=== PATIENT | male | born 1930 | race Caucasian/White ===

== ENCOUNTER 2016-09-04 17:47 | Inpatient (IN) | payer OTHER, MEDICARE ==
[~2016-09-04] VITALS: Ht 175.3 cm; Wt 58.6 kg
--- NOTE | ~2016-09-04 | HC ---
[facility] [place] [address] CONSULTATION Name: KOURTNEY FAIRBANKS Room #: 403-P [facility] IN M.R.#: [id number] Admission: 09/04/16 Attend Phys: Yodit Clayton Discharge: 09/08/16 Date of : 30 Report #: [id number] THIS REPORT FOR: //name// CC: Agusto Moreno DATE OF SERVICE: 09/07/2016 HISTORY OF PRESENT ILLNESS: The patient is an 86-year-old white male who has had problems with increasing falls at home. The notes that he has had 3 falls over the last couple of weeks where he falls backwards. He is unable to get up once he has fallen. There was one time he was bumped and fell back. He is not able to catch himself once he starts to fall. The family was concerned regarding the potential cause of this. He does have a comorbid prior history of chronic lung changes and has been followed by Dr. Ching. No other neuro contributing findings per discussion with the patient's and daughter. PAST MEDICAL HISTORY: Includes interstitial lung disease, bronchiectasis, hypertension, hypothyroidism and melanoma. PAST SURGICAL HISTORY: Noncontributory. FAMILY HISTORY: Noncontributory. HABITS: Former 61-zvxu-jrck history, none recently. No history of chronic alcohol use. MEDICATIONS: Please see the full medication listing. SOCIAL HISTORY: Lives with his , house 1 floor, stairs to the basement. He did use a standard cane on occasion, has a walker. is retired and can assist. Concern regarding him as once he falls, he is unable to get up. ALLERGIES: No known drug allergies. REVIEW OF SYSTEMS: No current complaints of chest pain, shortness of breath or abdominal discomfort. PHYSICAL EXAMINATION: An 86-year-old white male in no obvious distress. Last recorded temperature is 97.7, pulse 99, respirations 18, blood pressure 124/84. The patient is alert. He is pleasant. He tends to speak very little and defers most of it to his . EOMs appeared to be full. Facies are symmetric. He has functional range of motion of both upper extremities. Strength appears to be a grade 4+/5. DTRs are 1. He did reasonably well [id number]. Lower extremities, no focal calf swelling. Functional range of motion, strength is grade 4+ to 4/5. DTRs are trace to 1. He was able to ambulate 25 feet x 2 contact guard with a front-wheeled walker and [place] [address] CONSULTATION Name: KOURTNEY FAIRBANKS Room #: 403-P [facility] IN ..#: [id number] Admission: 09/04/16 Attend Phys: Yodit Clayton Discharge: 09/08/16 Date of : 30 Report #: [id number] ASSESSMENT: An 86-year-old white male with the following problem list: 1. History of recurrent falls with retropulsive history. and daughter quite concerned regarding potential causation. We will go ahead and order an MRI of the brain and Neurology consult with Dr. Scout Moreno. 2. History of interstitial lung disease, which is premorbid. 3. Bronchiectasis, premorbid 4. History of hypertension. 5. Hypothyroidism. PLAN: Occupational therapy orders are added as well. Physical therapy is already ordered. We will see what the workup reveals and we will be glad to follow along with you regarding his rehab therapy needs. 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 <ELECTRONICALLY SIGNED> By: Gerardo Larios MD 09/11/16 1539 1045 1244 Gerardo Lariso MD /nt
--- NOTE | ~2016-09-04 | H ---
[facility] [place] [address] HISTORY AND PHYSICAL Name: KOURTNEY FAIRBANKS Room #: 403-P [facility] IN M.R.#: [id number] Admission: 09/04/16 Attend Phys: Yodit Clayton Discharge: 09/08/16 Date of : 30 Report #: [id number] THIS REPORT FOR: //name// CC: Agusto Moreno DATE OF SERVICE: 09/04/2016 CHIEF COMPLAINT: This is an 86-year-old male with dementia and safety issues. HISTORY OF PRESENT ILLNESS: This is a patient who is well known to our service, who has progressive dementia of the probable Alzheimer's type that is now translating into safety issues at home and there is evidence of caregiver breakdown and safety issues and so we are admitting him for further evaluation and safety purposes. PAST MEDICAL HISTORY: Noteworthy for his interstitial lung disease, hypothyroidism, degenerative arthritis, bronchiectasis and hypertension. His past medical history is otherwise negative from a surgical perspective. MEDICATION: Medication list includes albuterol, levothyroxine, atenolol 50 mg a day and levofloxacin. FAMILY HISTORY: Negative. SOCIAL HISTORY: He smoked many years ago. He currently lives independently with his without evidence of alcohol use. He has no known allergies, but at home, he is falling a lot. We have tried outpatient therapy. He has tried to manage as best he can, but his dementia gets in the way. REVIEW OF SYSTEMS: Really is not reliable. PHYSICAL EXAMINATION: GENERAL: Shows him to be in no distress. He is up eating breakfast with oxygen in place. HEENT: Otherwise, negative. NECK: Supple, without thyromegaly or adenopathy. CHEST: Coarse. CARDIOVASCULAR: Shows a regular rhythm without murmur. ABDOMEN: Soft and nontender. EXTREMITIES: Negative. NEUROLOGIC: Shows forgetfulness. LABORATORY DATA: He has had a recent data to include negative CT of the head. He had a recent urinary tract infection. ASSESSMENT: This is a patient with progressive dementia [place] [address] HISTORY AND PHYSICAL Name: KOURTNEY FAIRBANKS Room #: [address] [place] [address] [place] [facility].#: [id number] Admission: 09/04/16 Attend Phys: Yodit Clayton Discharge: 09/08/16 Date of : 30 Report #: [id number] breakdown. We will involve the rehab team along with case management. It may be that it is time for assisted living. <ELECTRONICALLY SIGNED> By: Agusto Moreno MD 09/16/16 1734 0849 0944 Agusto Moreno MD /nt
--- NOTE | ~2016-09-04 | EKG ---
[address] [address] ELECTROCARDIOGRAM REPORT Name: KOURTNEY FAIRBANKS Room #: 538-P ADM IN M.R.#: [id number] Admission: 09/04/16 Attend Phys: Yodit Clayton Discharge: Date of : 30 Report #: [id number] THIS REPORT FOR: //name// [facility] Test Date: 2016-09-04 Test Time: 21:32:35 Pat Name: KOURTNEY FAIRBANKS Department: Room: 538 P Gender: M Manager Transfusion: Yodit REZA : 1930 Requested By: Agusto Moreno Order Number: [id number] MD: Marcos Gilbert Measurements Intervals Mutual Rate: 82 P: 39 TX: 143 QRS: -48 QRSD: 103 T: 11 QT: 366 QTc: 428 Interpretive Statements Sinus rhythm Atrial premature complexes Left anterior fascicular block Compared to ECG 07/16/2016 20:33:10 Atrial premature complex(es) now present Sinus tachycardia no longer present Electronically Signed On 09-06-2016 15:13:15 CDT by Marcos Gilbert [email or web address] <ELECTRONICALLY SIGNED> By: Marcos Gilbert MD, MERGED WITH [facility] 09/06/16 1513 31 31 Marcos Gilbert MD, MERGED WITH [facility] /EPI
--- NOTE | ~2016-09-04 | HC ---
[facility] [place] [address] CONSULTATION Name: JONATHANFABRIZIOKOURTNEY FORTE Room #: 403-P [facility] IN M.R.#: [id number] Admission: 09/04/16 Attend Phys: Yodit Clayton Discharge: 09/08/16 Date of : 30 Report #: [id number] THIS REPORT FOR: //name// CC: Agusto Moreno DATE OF SERVICE: 09/08/2016 HISTORY OF PRESENT ILLNESS: This is an 86-year-old male patient who was evaluated by me for ambulation difficulty. This patient provides some history, but most of the history is provided by the patient's family. He apparently is having some ambulation difficulty for more than 1 year. It is at least moderate severity, but is becoming worse. This has led to falls. He shuffled. He has done it for long time. Sometime he is better and sometime he is worse. He does not know anything which makes it better or worse. He does not have much of rigidity or hypokinesia. REVIEW OF SYSTEMS: Indicate that he was diagnosed with dementia at one time. He was started on multiple medications including Exelon patch and Namenda. At one time they discontinued, but the says "I did not want to give up" and do nothing and so Namenda was restarted. thought it was making some difference, but on the other hand she also mentioned that she was also hoping that it will slow down the progression. This patient did have multiple falls recently. A 14-point review of system was carried out and there is some problem with hypothyroidism, degenerative arthritis, hypertension. PAST MEDICAL HISTORY: Negative for any major stroke. FAMILY HISTORY: Negative for congenital dementia. SOCIAL HISTORY: He has smoked, but does not drink alcohol. PHYSICAL EXAMINATION: Indicate he is alert. When I asked what month it is, he indicated it is December. He did not know the date. He knew what hospital he was in. He was able to name the president, but not the one before. So his memory is significantly impaired. Cranial nerve examination 2-12 was carried out and looks unremarkable. His strength looks symmetrical. He did not do very well with the position sense, but I do not know whether he understand the instructions. He does not have much tremor or rigidity. I did make him walk and he does have shuffling. He is well developed thin individual, who does not have any dysmorphic features of eyes, ears and face. His hearing and vision looks adequate. His pulses are somewhat difficult to feel. He has no edema, cyanosis or jaundice. He does not have any respiratory difficulty. There are no rhonchi. I reviewed his MRI. His MRI is pretty markedly abnormal. 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 His management is not going to be easy. He can have more side effect from the [facility] [address] [place] [address] CONSULTATION Name: KOURTNEY FAIRBANKS Room #: 403-P [facility] IN ..#: [id number] Admission: 09/04/16 Attend Phys: Yodit Clayton Discharge: 09/08/16 Date of : 30 Report #: [id number] medication and Parkinson medications usually are not very effective for correcting the gait disturbance even if it is present. RECOMMENDATIONS: 1. I will let him stabilize. 2. I will suggest doing some more blood workup on him, which I ordered. 3. Once he is stabilized, trial with a small dose of Sinemet can be done. I discussed all of it with the family in detail and they want to follow this plan. Thank you very much for this referral. <ELECTRONICALLY SIGNED> By: Joselito Stearns MD 09/11/16 1926 1758 39 Joselito Stearns MD /nt
[~2016-09-04 17:47] MED LIST: ATENOLOL 50MG T50 M1 PO; CENTRUM SILVER1 EAC4 PO; DUONEB 2.5-0.5 M3 ML INH; FISH OIL 1,001000 M2 PO; LEVAQUIN 250 M250 MG PO; LEVOXYL25 MCG PO; LIPITOR10 MG PO; LORATIDINE 10 M10 M1 PO; MUCINEX TA600 MG/TA2 PO; VITAMIN D1000 UNI1 PO; VITAMIN E400 UNI2 PO
[2016-09-04 20:15] VITALS: BP 129/75
[2016-09-04 23:25] LABS: ABSOLUTE NEUTROPHILS 10.9 thou/uL (1.4-8.2); BASOPHILS 0.4 % (0.0-2.0); EOSINOPHILS 0.5 % (0.0-3.0); HEMATOCRIT 35.4 % (42.0-52.0); HEMOGLOBIN 11.8 gm/dL (14.0-18.0); LYMPHOCYTES 10.4 % (24.0-44.0); MCH 29.7 pg (26.0-34.0); MCHC 33.5 g/dL (28.0-37.0); MCV 88.9 fL (80.0-100.0); MONOCYTES 11.7 % (1.0-8.0); PLATELET COUNT 309 thou/uL (150-400); RBC 3.98 mil/uL (4.50-6.00); RDW 13.4 % (10.5-14.5); WBC 14.1 thou/uL (4.0-11.0)
[2016-09-04 23:26] LABS: MANUAL DIFF NO
[2016-09-05 05:45] VITALS: BP 123/62
[2016-09-05 07:47] VITALS: BP 127/72
[2016-09-05 16:02] VITALS: BP 98/59
[2016-09-05 20:55] VITALS: BP 98/62
[2016-09-06 06:01] VITALS: BP 141/86
[2016-09-06 08:00] VITALS: BP 145/87
[2016-09-06 16:00] VITALS: BP 128/79
[2016-09-06 19:42] VITALS: BP 107/61
[2016-09-07 04:13] VITALS: BP 141/85
[2016-09-07 07:31] VITALS: BP 124/84
[2016-09-07 16:04] VITALS: BP 113/69
[2016-09-07 19:02] VITALS: BP 121/78
[2016-09-08 03:17] VITALS: BP 150/98
[2016-09-08] MEDS ORDERED: LEVAQUIN 250 M250 MG PO (10:11)
[2016-09-08] MEDS ORDERED: NAMENDA 5 MG TAB5 M1 PO (10:12)
== END 2016-09-08 19:00 | DRG 57 ==
LOC: 5S 17:47 → 4N 09-08 07:16
PROVIDERS: Internal Medicine
DX: G20 Parkinson's disease (principal); I10 Essential (primary) hypertension; E03.9 Hypothyroidism, unspecified; M19.90 Unspecified osteoarthritis, unspecified site; J44.9 Chronic obstructive pulmonary disease, unspecified; R26.9 Unspecified abnormalities of gait and mobility; Z91.81 History of falling; Z85.820 Personal history of malignant melanoma of skin; Z87.891 Personal history of nicotine dependence; F02.80 Dementia in other diseases classified elsewhere, unspecified severity, without behavioral disturbance, psychotic disturbance, mood disturbance, and anxiety
CPT/HCPCS: 10785

== ENCOUNTER 2016-09-08 12:01 | Inpatient (IN) | payer OTHER, MEDICARE ==
[~2016-09-08] VITALS: Ht 175.3 cm; Wt 58.7 kg
--- NOTE | ~2016-09-08 | PLAN ---
[facility] [place] [address] REHAB UNIT PLAN OF CARE Name: KOURTNEY FAIRBANKS Room #: 514-P ADM IN M.R.#: [id number] Admission: 09/08/16 Attend Phys: Gerardo Larios MD Discharge: Date of : 30 Report #: [id number] THIS REPORT FOR: //name// CC: Agusto Larios DATE OF SERVICE: 09/11/2016 SUBJECTIVE: The patient is seen back today in followup. He is in no distress. His daughter is here and indicates that the family would like for him to start the Sinemet trial with the diagnosis of probable Parkinson's/dementia complex. His temperature is 98.2, pulse 78, respirations 16, blood pressure 108/84. He is working in therapies with transfers, contact guard, gait 75-200 feet, front-wheeled walker, contact guard. Lower extremity dressing is max assist. Mild to moderate comprehensive deficits. ASSESSMENT: 1. Parkinson's/dementia complex. 2. Recurrent falls with retropulsion by history. 3. History of interstitial lung disease noted to be premorbid. 4. Bronchiectasis, which has improved. 5. History of hypertension. 6. Hypothyroidism. PLAN: The overall plan of care is based on the preadmission screen, post-admission physician evaluation and information garnered from therapy assessments. 1. Estimated length of stay is probably at least 10 days to 2 weeks pending progress. 2. Medical prognosis is reasonably good. 3. Anticipated interventions include the interdisciplinary acute inpatient rehabilitation program with PT, OT and speech, rehabilitation nursing assisting regarding medication management, skin care prophylaxis, bowel and bladder issues and nursing education. We will have the corporate health consultant physicians continue to follow. 4. Anticipated functional outcomes would be for the patient to improve as far as the retropulsive tendency, decreased incident of falls and achieve a functional level where he can return back home with family. 5. Discharge destination again would be back home with family. 6. Expected therapy by discipline includes PT, OT and speech 1 hour per day each 5 days a week throughout the duration of the acute inpatient rehabilitation stay. ADDENDUM: I have asked Neurology to check back regarding the [facility] [address] [place] [address] REHAB UNIT PLAN OF CARE Name: KOURTNEY FAIRBANKS Nicole Room #: 514-P ADM IN [facility].#: [id number] Admission: 09/08/16 Attend Phys: Gerardo Larios MD Discharge: Date of : 30 Report #: [id number] Parkinson's/dementia complex and consideration for the Sinemet trial, which the family is desiring. <ELECTRONICALLY SIGNED> By: Gerardo Larios MD 09/11/16 1539 1039 1304 Gerardo Larios MD /nt
--- NOTE | ~2016-09-08 | D ---
[facility] [place] [address] DISCHARGE SUMMARY Name: KOURTNEY FAIRBANKS Room #: 514-P ADM IN M.R.#: [id number] Admission: 09/08/16 Attend Phys: Gerardo Larios MD Discharge: Date of : 30 Report #: [id number] THIS REPORT FOR: //name// CC: Agusto Larios FINAL DIAGNOSES: 1. Neurodegenerative gait dysfunction. 2. Senile dementia. 3. Bronchiectasis. HOSPITAL COURSE: The patient was admitted for frequent falls. Lab and x-ray workup were unremarkable. His chest x-ray is noted really to have chronic basilar scarring due to his bronchiectasis. He was given empiric antibiotics, but no clinical overt signs of pneumonia. He is noted to have memory loss and diagnosis of senile dementia had previously been made. MRI of the brain was unremarkable. DISPOSITION: Now transfer to [address] [place] [address]. I will follow his stay there. Transfer orders have been written. <ELECTRONICALLY SIGNED> By: Gerardo Palafox MD 09/09/16 1434 1301 1312 Gerardo Palafox MD /nt
--- NOTE | ~2016-09-08 | HC ---
[facility] [place] [address] CONSULTATION Name: KOURTNEY FAIRBANKS Room #: 514-P [facility] IN M.R.#: [id number] Admission: 09/08/16 Attend Phys: Gerardo Larios MD Discharge: Date of : 30 Report #: [id number] THIS REPORT FOR: //name// CC: Agusto Larios DATE OF SERVICE: 09/12/2016 TYPE OF REPORT: Neuro behavioral status exam. AGE: 86. ATTENDING PHYSICIAN: Gerardo Larios M.D. LINER MACHINE OPERATOR: Atul Agarwal, PhD. CLINICAL PRESENTATION: The patient is an 86-year-old male admitted to the rehabilitation unit at [facility] for comprehensive inpatient rehabilitation program to improve functional mobility and activities of daily living and self-care secondary to deficits from a Parkinson's dementia complex with recurrent falls, history of interstitial lung disease, recurrent falls with retropulsion by history, bronchiectasis, history of hypertension and hypothyroidism. Prior to this hospitalization, the patient was living at home with his . He experienced several falls and was subsequently brought to the hospital for evaluation and treatment. His MRI is reported to have revealed moderate to severe generalized parenchymal volume loss and jjxggutr-vw-crkymf chronic small vessel ischemic changes. A complete description of his medical condition and history can be found in his medical record. Neuropsychological consultation was requested to provide assistance in the assessment of cognitive and emotional status and to provide recommendations and services. The patient has three children. He is a college graduate and was employed as an senior corporate accountant. His son is reported to be an emergency room physician at [facility]. He had one sister that is . His family is very supportive. TECHNIQUES UTILIZED: Clinical interview, review of medical records, staff consultation and behavioral observation, mini mental status exam 2 standard version, clock drawing and verbal fluency assessment (letter and category). EXAMINATION FINDINGS: The patient was alert and cooperative with the assessment. He was unable to describe the reason for his hospitalization or current symptoms and problems that he is having which require treatment. During the evaluation he looked frequently to his for help with answering [facility] [address] [place] [address] CONSULTATION Name: KOURTNEY FAIRBANKS Nicole Room #: 514-P [facility] IN M.R.#: [id number] Admission: 09/08/16 Attend Phys: Gerardo Larios MD Discharge: Date of : 30 Report #: [id number] questions. He is lacking insight into his deficits and very dependent on his for assistance. His describes him as having a shuffling gait, retropulsion and freezing when approaching thresholds. She does not report auditory or visual hallucinations. The patient also denies hallucinations. There is a severe poverty of content in verbal expression. He is not reported to show symptoms of depression or anxiety. Symptoms include sleep disturbance, tiredness and fatigue during the day, variable appetite and decreasing cognition primarily memory, word finding and naming. As indicated, his provides much help with the identification of problems and symptoms for which he requires treatment and for general adjustment. His performance on the MMSE 2 brief version is extremely low with a raw score of 5 of 16. He was 3 of 3 for initial registration, 1 of 5 for orientation to time, 0 of [address] and 1 of 3 for immediate recall of 3 items after a brief time delay and distraction. His performance on the MMSE 2 standard version was somewhat improved but still extremely low with a raw score of 14 of 30. He was 1 of 5 for serial sevens, 2 of 2 for naming, 1 of 1 for repetition, 3 of 3 for auditory comprehension. He could read and follow single command. He also generates a sentence. Drawing suggests a visual spatial disorganization. The patient was unable to set the hands of a clock at a designated time. He was noted to be stimulus bound in his response to setting the hands. Verbal fluency was extremely low. Letter fluency was a raw score of 3. Category fluency was a raw score of 7. However, performance is extremely low for letter and category fluency. Deficits are suggested in executive functioning. 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 RECOMMENDATIONS: Continued treatment for neurocognitive deficits with medication to support memory. He will require 24-hour supervision for management of his medication, nutrition and finances. Safety issues will be of primary concern upon his discharge home. Educational information was provided to his during the assessment. A followup neuropsych assessment may be of benefit following his discharge home to clarify the severity of cognitive deficits. [address] [address] CONSULTATION Name: KOURTNEY FAIRBANKS Room #: 514-P [facility] IN M.R.#: [id number] Admission: 09/08/16 Attend Phys: Gerardo Larios MD Discharge: Date of : 30 Report #: [id number] Thank you very much for allowing me to provide the consultation on this patient. <ELECTRONICALLY SIGNED> By: Atul Agarwal, PhD 09/13/16 1415 1546 14 Atul Agarwal, PhD /nt
--- NOTE | ~2016-09-08 | HC ---
[facility] [place] [address] CONSULTATION Name: KOURTNEY FAIRBANKS Room #: 514-P [facility] IN M.R.#: [id number] Admission: 09/08/16 Attend Phys: Gerardo Larios MD Discharge: 09/22/16 Date of : 30 Report #: [id number] THIS REPORT FOR: //name// CC: Agusto Larios PRIMARY CARE PHYSICIAN: Scout Moreno M.D. REFERRAL PHYSICIAN: Gerardo Palafox M.D. REASON FOR REFERRAL: Cough and bronchospasm. HISTORY OF PRESENT ILLNESS: The patient is an 86-year-old white male well known to this physician with bronchiectasis and interstitial lung disease. He has been admitted to the rehab unit for weakness and falls. A pulmonary consultation was requested due to persistent cough and bronchospasm. The patient has been followed longitudinally in your office for a number of years for COPD, bronchiectasis along with interstitial lung disease. The patient has been doing fairly well. He takes occasional antitussives for his chronic cough. He has a mild productive cough of light yellowish sputum. To my recollection, he has never been diagnosed with Pseudomonas aeruginosa infections. Over the years, the patient has been getting weaker and frail. He has lost some weight. There are some concerns for senile dementia. Because of frequent falls and safety concerns, he was admitted to the rehab. Currently, he states the cough is about the same though he has occasional dyspnea and bronchospasm at nights. Otherwise denies any chest pain or hemoptysis. PAST MEDICAL HISTORY: Remarkable for COPD/bronchiectasis, moderately severe, baseline FEV1 of 1.4 liters of 58% predicted, interstitial lung disease, melanoma, hypertension, past history of pneumonia, past history of bronchitis, history of falls with progressive weakness, hypocholesterolemia, mild cardiomyopathy with an ejection fraction of 47%, is felt to be nonischemic. PAST SURGICAL HISTORY: Includes lung biopsy in 2008 regarding his interstitial lung disease without obvious specific diagnosis, melanoma resection in 2011, abdominal surgery, bronchoscopy in 2015. ALLERGIES: None to medications. CURRENT MEDICATIONS: List reviewed. These have included DuoNebs, nebulized budesonide, zolpidem p.r.n., atenolol, tamsulosin, levothyroxine, memantine, guaifenesin, prednisone 40 mg once a day, and Augmentin 875 mg [address]. b.i.d. [address] [address] CONSULTATION Name: KOURTNEY FAIRBANKS Nicole Room #: 514-P DIS IN ..#: [id number] Admission: 09/08/16 Attend Phys: Gerardo Larios MD Discharge: 09/22/16 Date of : 30 Report #: [id number] FAMILY HISTORY: Is notable for mother, who at the age of 41 due to cancer of unknown type, father at the age of 75, cause unknown. He has several children, one son is an ER physician. SOCIAL HISTORY: The patient is , lives independently with his . He has smoked, but quit in 1959 after having smoked one to two packs a day for many years. He used to drink, but has quit. He is a retired repairer recreational vehicle. There are in the process of contemplating moving to a smaller place and selling their home. REVIEW OF SYSTEMS: As mentioned, it is notable for progressive weakness and debility, weight loss. Otherwise, 10-point system review negative. PHYSICAL EXAMINATION: GENERAL: He is awake, alert at times, but confused at other times. VITAL SIGNS: Temperature is 98.5 degrees Fahrenheit, pulse is 91, respiratory rate 16, blood pressure is 112/68 mmHg, and saturation 97%. HEENT: Normocephalic, atraumatic. NECK: Supple without any lymphadenopathy or thyromegaly. CHEST: Breath sounds are fair due to poor effort. Few scattered crackles. No wheezes. CARDIOVASCULAR: Normal S1, S2. No murmurs or gallop. Pulses are 2+/4 positive bilaterally. ABDOMEN: Soft, nontender, no organomegaly or masses felt. GENITOURINARY: Deferred. RECTAL: Deferred. EXTREMITIES: There is no edema, cyanosis, or clubbing. LABORATORY DATA: Chest x-ray shows chronic bilateral patchy interstitial infiltrates. No consolidation, air bronchogram is noted. No effusion seen. Electrolytes are normal. Creatinine is normal. WBC 4500, hemoglobin is 12.7. IMPRESSION: 1. Persistent dyspnea, bronchospasm in this 86-year-old white male with a history of bronchiectasis, chronic obstructive pulmonary disease along with interstitial lung disease. Suspect the patient has mild exacerbation of chronic obstructive pulmonary disease. 2. Chronic obstructive pulmonary disease, mildly severe impairment, baseline FEV1 of 1.4 liters or 58% predicted. 3. Pulmonary fibrosis related to above. 4. Progressive weakness and debility along with weight loss. 5. Dementia. RECOMMENDATION: Agree with Augmentin. We will add prednisone 40 mg once a day for 5 days. Continue bronchodilator therapy. [address] [address] CONSULTATION Name: KOURTNEY FAIRBANKS Room #: 514-P DIS IN ..#: [id number] Admission: 09/08/16 Attend Phys: Gerardo Larios MD Discharge: 09/22/16 Date of : 30 Report #: [id number] The patient can use antitussive if cough is severe. Thank you for the consultation. <ELECTRONICALLY SIGNED> By: Colt Ching MD 09/23/16 1351 [id number] Colt Ching MD /nt
--- NOTE | ~2016-09-08 | H ---
[facility] [place] [address] HISTORY AND PHYSICAL Name: KOURTNEY FAIRBANKS Room #: 514-P ADM IN M.R.#: [id number] Admission: 09/08/16 Attend Phys: Gerardo Larios MD Discharge: Date of : 30 Report #: [id number] THIS REPORT FOR: //name// CC: Agusto Larios DATE OF SERVICE: 09/08/2016 HISTORY OF PRESENT ILLNESS: The patient is an 86-year-old white male who was having problems with increasing falls at home. He had 3 falls over the last couple of weeks where he falls backwards. He was unable to get up once he had fallen. He was admitted on 09/04/2016. MRI of the brain did not show any acute abnormalities. Neurology saw him and noted that he does have some shuffling, memory is significantly impaired. had tried him on could try him on Exelon patch and Namenda and the Namenda was restarted. 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 They ordered more blood work and are considering starting a small dose of Sinemet at a later date. The patient was noted to have significant functional mobility and ADL deficits and has been admitted now for acute in-hospital inpatient rehabilitation. He also was noted to have bronchiectasis. PAST MEDICAL HISTORY: Includes interstitial lung disease, bronchiectasis, hypertension, hypothyroidism and melanoma. MEDICATIONS: Please see the full medication listing. Each of these was individually reconciled upon admission to the rehab chilel. PAST SURGICAL HISTORY: Noncontributory. FAMILY HISTORY: Noncontributory. HABITS: Former pack year history, none recently. No history of chronic alcohol abuse. SOCIAL HISTORY: Lives with his , house one floor stairs to the basement. He did use a standard cane on occasion, also has a walker. is retired and can assist. Concern regarding him once he falls. He is noted to be unable to get up. ALLERGIES: No known drug allergies. REVIEW OF SYSTEMS: Did not offer any current complaints of chest pain, shortness of breath, abdominal discomfort. No focal extremity pain complaints. PHYSICAL EXAMINATION: GENERAL: An 86-year-old white male in no obvious distress. [address] [address] HISTORY AND PHYSICAL Name: KOURTNEY FAIRBANKS Room #: 514-P [facility] IN .R.#: [id number] Admission: 09/08/16 Attend Phys: Gerardo Larios MD Discharge: Date of : 30 Report #: [id number] VITAL SIGNS: Last recorded temperature 97.8, pulse 96, respirations 16, blood pressure 160/92. NEUROLOGIC: The patient is alert, pleasant. He may have some evidence of a masked facies. Limited speech. EOMs appeared to be full. CHEST: Sounded clear to auscultation. CARDIAC: Regular rate and rhythm. ABDOMEN: Bowel sounds positive, nontender. GENITOURINARY AND RECTAL: Deferred. EXTREMITIES: He has functional range of motion of both upper extremities with strength grade 4+ -4/5. DTRs are 1. Lower extremities, no focal calf swelling. Functional range of motion with strength a grade 4+ -4/5. DTRs are trace to 1. He does have some cogwheeling of both elbows with range of motion of his upper extremities and may have some mild rigidity of his lower extremities. Lower extremities reveal DTRs trace to 1. Transfers are min assist and he has ambulated a short distance min assist with the front wheeled walker. ASSESSMENT: 1. Parkinsons/dementia complex. Neurology is following. Further lab evaluation underway with consideration for a low dose Sinemet trial at a later dose. 2. Recurrent falls with retropulsion by history. 3. History of interstitial lung disease noted to be premorbid. 4. Bronchiectasis, which is premorbid. 5. History of hypertension. 6. Hypothyroidism. PLAN: The patient has been admitted for an acute in-hospital inpatient rehabilitation stay. From a postadmission physician evaluation perspective, there are no relevant changes since the preadmission screening. Please see the above review of prior and current medical and functional conditions and comorbidities. The patient meets diagnostic criteria for an acute in-hospital inpatient rehabilitation stay. He meets medical necessity criteria and we will have neurology and internal medicine continue to follow while he is on the rehab chilel. He has appropriate tolerance for therapies and appropriate discharge goals back to the home setting. <ELECTRONICALLY SIGNED> By: Gerardo Larios MD 09/11/16 [id number] Gerardo Larios MD /nt
[~2016-09-08 12:01] MED LIST changes: +NAMENDA 5 MG TAB5 M1 PO
[2016-09-08 19:31] VITALS: BP 101/68
[2016-09-09 03:52] VITALS: BP 160/92
[2016-09-09 05:35] LABS: HEMATOCRIT 38.3 % (42.0-52.0); HEMOGLOBIN 12.7 gm/dL (14.0-18.0); MCH 29.3 pg (26.0-34.0); MCHC 33.1 g/dL (28.0-37.0); MCV 88.7 fL (80.0-100.0); RBC 4.32 mil/uL (4.50-6.00); RDW 13.3 % (10.5-14.5); WBC 9.1 thou/uL (4.0-11.0)
[2016-09-09 05:43] LABS: CALCIUM 9.1 mg/dL (8.5-10.1); CREATININE 0.9 mg/dL (0.6-1.3); POTASSIUM 4.1 mmol/L (3.5-5.1)
[2016-09-09 15:30] VITALS: BP 111/72
[2016-09-09 20:36] VITALS: BP 118/69
[2016-09-10 03:09] VITALS: BP 146/84
[2016-09-10 07:45] VITALS: BP 122/80
[2016-09-10 16:00] VITALS: BP 102/67
[2016-09-10 20:00] VITALS: BP 109/70
[2016-09-11 03:47] VITALS: BP 108/84
[2016-09-11 15:52] VITALS: BP 96/57
[2016-09-12 08:22] VITALS: BP 128/76
[2016-09-12 15:30] LABS: HEMATOCRIT 37.5 % (42.0-52.0); HEMOGLOBIN 12.4 gm/dL (14.0-18.0); MCH 29.5 pg (26.0-34.0); MCHC 33.2 g/dL (28.0-37.0); MCV 88.9 fL (80.0-100.0); RBC 4.22 mil/uL (4.50-6.00); RDW 13.4 % (10.5-14.5); WBC 7.2 thou/uL (4.0-11.0)
[2016-09-13 05:18] VITALS: BP 136/84
[2016-09-13 16:00] VITALS: BP 110/66
[2016-09-14 04:00] VITALS: BP 131/76
[2016-09-14 14:55] VITALS: BP 93/47
[2016-09-14 16:10] VITALS: BP 93/57
[2016-09-15 03:51] VITALS: BP 148/82
[2016-09-15 11:20] VITALS: BP 92/57
[2016-09-15 14:40] VITALS: BP 85/56
[2016-09-15 15:00] VITALS: BP 96/52
[2016-09-15 20:00] VITALS: BP 98/58
[2016-09-16 04:16] VITALS: BP 123/82
[2016-09-16 08:30] VITALS: BP 95/58
[2016-09-16 16:00] VITALS: BP 122/55
[2016-09-16 19:35] VITALS: BP 131/73
[2016-09-17 03:28] VITALS: BP 128/82
[2016-09-17 16:30] VITALS: BP 106/68
[2016-09-17 16:33] VITALS: BP 106/68
[2016-09-18 04:01] VITALS: BP 128/62
[2016-09-18 16:00] VITALS: BP 124/78
[2016-09-19 04:30] VITALS: BP 150/79
[2016-09-19 08:07] VITALS: BP 112/72
[2016-09-19 23:12] VITALS: BP 152/80
[2016-09-20 03:18] VITALS: BP 157/91
[2016-09-20 12:40] LABS: HEMATOCRIT 38.6 % (42.0-52.0); HEMOGLOBIN 12.7 gm/dL (14.0-18.0); MCH 29.3 pg (26.0-34.0); MCHC 32.8 g/dL (28.0-37.0); MCV 89.3 fL (80.0-100.0); RBC 4.33 mil/uL (4.50-6.00); RDW 14.1 % (10.5-14.5); WBC 4.5 thou/uL (4.0-11.0)
[2016-09-20 12:43] LABS: CALCIUM 9.1 mg/dL (8.5-10.1); CREATININE 0.9 mg/dL (0.6-1.3); POTASSIUM 4.5 mmol/L (3.5-5.1)
[2016-09-20 16:00] VITALS: BP 112/68
[2016-09-21 04:00] VITALS: BP 117/68
[2016-09-21 08:10] VITALS: BP 109/69
[2016-09-21 16:00] VITALS: BP 116/68
[2016-09-22] VITALS (7 sets, daily range): BP systolic 106–141; BP diastolic 68–78
[2016-09-22] MEDS ORDERED: FLOMAX0.4 MG PO (08:52)
[2016-09-22] MEDS ORDERED: AUGMENTIN 875-1 EACH PO (08:52)
[2016-09-22] MEDS ORDERED: NAMENDA 5 MG TAB5 M1 PO (08:53)
[2016-09-22] MEDS ORDERED: ATENOLOL 25 MG25 M1 PO (08:53)
[2016-09-22] MEDS ORDERED: PREDNISONE 20 M20 M1 PO (08:54)
== END 2016-09-22 16:01 | disposition home or self-care (01) | DRG 91 ==
PROVIDERS: Internal Medicine Geriatric Medicine; Physical Medicine & Rehabilitation; Psychiatry & Neurology Neuromuscular Medicine
DX: R26.89 Other abnormalities of gait and mobility (principal); G93.40 Encephalopathy, unspecified; I42.9 Cardiomyopathy, unspecified; J84.9 Interstitial pulmonary disease, unspecified; E46 Unspecified protein-calorie malnutrition; Z68.1 Body mass index [BMI] 19.9 or less, adult; I10 Essential (primary) hypertension; G20 Parkinson's disease; F02.80 Dementia in other diseases classified elsewhere, unspecified severity, without behavioral disturbance, psychotic disturbance, mood disturbance, and anxiety; E03.9 Hypothyroidism, unspecified; J44.9 Chronic obstructive pulmonary disease, unspecified; J84.10 Pulmonary fibrosis, unspecified; G47.00 Insomnia, unspecified; Z87.891 Personal history of nicotine dependence; Z79.899 Other long term (current) drug therapy
CPT/HCPCS: 10112

== ENCOUNTER → 2016-12-03 | Outpatient (CLI) | payer OTHER, MEDICARE ==
[~2016-12-03] MED LIST changes: +ATENOLOL 25 MG25 M1 PO; +AUGMENTIN 875-1 EACH PO; +FLOMAX0.4 MG PO; +PREDNISONE 20 M20 M1 PO
== END ==
LOC: RAD 10:08
DX: J44.9 Chronic obstructive pulmonary disease, unspecified (principal); R91.8 Other nonspecific abnormal finding of lung field

== ENCOUNTER → 2016-12-23 | Outpatient (CLI) | payer OTHER, MEDICARE ==
--- NOTE | ~2016-12-23 | 2DMMODE ---
[facility] [address] [place] [address] 2 D/M-MODE ECHOCARDIOGRAM Name: KOURTNEY FAIRBANKS Room #: REG [facility]#: [id number] Admission: 12/23/16 Attend Phys: George Aguilera Discharge: Date of : 30 Date of Service: 12/23/16 1328 Report #: [id number] THIS REPORT FOR: //name// APPROVED REPORT Study performed: 12/23/2016 10:39:51 EXAM: Comprehensive 2D, Doppler, and color-flow Echocardiogram Patient Location: Out-Patient Status: routine Other Information Study Quality: Adequate Technically limited study due to thin body habitus, constant coughing. Indications SVT. Hx: NISCM, HTN, HLP, COPD 2D Dimensions RVDd: 40.35 mm LVEF(%): 50.89 (>50%) IVSd: 10.34 (7-11mm) LVOT Diam: 22.52 (18-24mm) LVDd: 46.15 mm PWd: 10.34 (7-11mm) Ascending Ao: 37.11 (22-36mm) LVDs: 34.22 (25-40mm) Aortic Root: 40.86 mm Gamble's LVEF: 50.89 % Volumes Left Atrial Volume (Systole) Single Plane 4CH: 44.99 mL Single Plane 2CH: 55.29 mL LA ESV Index: 34.00 mL/m2 Aortic Valve AoV Peak Mak.: 1.50 m/s AO Peak Gr.: 8.94 mmHg LVOT Max P.74 mmHg LVOT Max V: 1.09 m/s SHI Vmax: 2.90 cm2 Mitral Valve E/A Ratio: 0.9 MV Decel. Time: 217.68 ms MV E Max Mak.: 0.90 m/s MV A Mak.: 0.97 m/s [facility] [place] [address] 2 D/M-MODE ECHOCARDIOGRAM Name: MAGDIKOURTNEY TAMMIE Room #: REG [facility]#: [id number] Admission: 12/23/16 Attend Phys: George Aguilera Discharge: Date of : 30 Date of Service: 12/23/16 1328 Report #: [id number] MV PHT: 63.13 ms IVRT: 101.50 ms Pulmonary Valve PV Peak Mak.: 0.99 m/s PV Peak Gr.: 3.90 mmHg Pulmonary Vein P Vein S: 0.94 m/s P Vein A: 0.33 m/s P Vein D: 0.52 m/s P Vein A Dur.: 120.0 msec P Vein S/D Ratio: 1.81 Tricuspid Valve TR Peak Mak.: 2.99 m/s RAP Estimate: 5.00 mmHg TR Peak Gr.: 35.68 mmHg PA Pressure: 41.00 mmHg Left Ventricle The left ventricle is normal size. There is normal left ventricular wall thickness. Left ventricular systolic function is mildly decreased. LVEF is 45%. Grade I - abnormal relaxation pattern. Right Ventricle The right ventricle is normal size. The right ventricular systolic function is normal. Atria The left atrium size is normal. The right atrium size is normal. Aortic Valve The Aortic valve is sclerotic. Trace to mild aortic regurgitation. There is no aortic valvular stenosis. Mitral Valve Mitral valve leaflets are mildly calcified. Mild mitral annular calcification. Trace to mild mitral regurgitation. No evidence of mitral valve stenosis. Tricuspid Valve Tricuspid valve is grossly normal in structure and function. There is mild tricuspid regurgitation. The right atrial pressure is estimated at 5 mmHg. There is mild-moderate pulmonary hypertension with an estimated PAP of 41mmHg. Pulmonic Valve The pulmonary valve is normal in structure. Mild pulmonic [address] [address] 2 D/M-MODE ECHOCARDIOGRAM Name: KOURTNEY FAIRBANKS Room #: REG [facility]#: [id number] Admission: 12/23/16 Attend Phys: George Aguilera Discharge: Date of : 30 Date of Service: 12/23/16 1328 Report #: [id number] regurgitation. Great Vessels Aortic root is dilated at 4.1cm The ascending aorta is at the upper limites of normal. IVC is normal in size and collapses >50% with inspiration. Pericardium There is no pericardial effusion. <Conclusion> The left ventricle is normal size. Left ventricular systolic function is mildly decreased. LVEF is 45%. The Aortic valve is sclerotic. Trace to mild aortic regurgitation. There is no aortic valvular stenosis. Mitral valve leaflets are mildly calcified. Mild mitral annular calcification. Trace to mild mitral regurgitation. No evidence of mitral valve stenosis. Tricuspid valve is grossly normal in structure and function. There is mild tricuspid regurgitation. The right atrial pressure is estimated at 5 mmHg. There is mild-moderate pulmonary hypertension with an estimated PAP of 41mmHg. The pulmonary valve is normal in structure. Mild pulmonic regurgitation. 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 <ELECTRONICALLY SIGNED> By: Bobo Perez MD 12/23/16 1328 1328 1328 Bobo Perez MD /INF
== END ==
LOC: CV 10:26
DX: I47.1 Supraventricular tachycardia (principal); I10 Essential (primary) hypertension; E78.5 Hyperlipidemia, unspecified; J44.9 Chronic obstructive pulmonary disease, unspecified

== ENCOUNTER → 2017-05-11 | Outpatient (CLI) | payer OTHER, MEDICARE | LOC: RAD 09:56 | DX: J47.9 Bronchiectasis, uncomplicated (principal); R04.2 Hemoptysis ==

== ENCOUNTER → 2017-08-31 | Outpatient (CLI) | payer OTHER, MEDICARE | LOC: RAD 12:52 | DX: I51.7 Cardiomegaly (principal); J84.9 Interstitial pulmonary disease, unspecified; J18.9 Pneumonia, unspecified organism ==

== ENCOUNTER → 2017-09-27 | Outpatient (CLI) | payer OTHER, MEDICARE | LOC: RAD 13:25 | DX: I50.33 Acute on chronic diastolic (congestive) heart failure (principal); J90 Pleural effusion, not elsewhere classified; R91.8 Other nonspecific abnormal finding of lung field; J44.9 Chronic obstructive pulmonary disease, unspecified ==

== ENCOUNTER → 2018-03-22 | Outpatient (CLI) | payer OTHER, MEDICARE ==
--- NOTE | ~2018-03-22 | 2DMMODE ---
[facility] [place] [address] 2 D/M-MODE ECHOCARDIOGRAM Name: KOURTNEY FAIRBANKS Room #: REG [facility]#: [id number] Admission: 03/22/18 Attend Phys: George Aguilera Discharge: Date of : 30 Date of Service: 03/22/18 1451 Report #: [id number] THIS REPORT FOR: //name// APPROVED REPORT Study performed: 03/22/2018 13:11:59 EXAM: Comprehensive 2D, Doppler, and color-flow Echocardiogram Patient Location: Out-Patient Room #: Echo lab 2 Status: routine BSA: 1.72 HR: 75 bpm BP: 122/76 mmHg Rhythm: NSR Other Information Study Quality: Adequate Indications Cardiomyopathy 2D Dimensions RVDd: 40.81 mm IVSd: 9.79 (7-11mm) LVOT Diam: 22.95 (18-24mm) LVDd: 51.51 mm PWd: 9.64 (7-11mm) Ascending Ao: 40.88 (22-36mm) LVDs: 41.39 (25-40mm) Aortic Root: 36.55 mm IVC: 14.00 mm Volumes Left Atrial Volume (Systole) Single Plane 4CH: 74.05 mL Single Plane 2CH: 59.45 mL LA ESV Index: 43.00 mL/m2 Aortic Valve AoV Peak Mak.: 1.30 m/s AO Peak Gr.: 6.80 mmHg LVOT Max P.15 mmHg LVOT Max V: 1.14 m/s SHI Vmax: 3.60 cm2 Mitral Valve E/A Ratio: 0.6 MV Decel. Time: 313.87 ms MV E Max Mak.: 0.69 m/s [facility] [address] [place] [address] 2 D/M-MODE ECHOCARDIOGRAM Name: KOURTNEY FAIRBANKS Room #: [facility]#: [id number] Admission: 03/22/18 Attend Phys: George Aguilera Discharge: Date of : 30 Date of Service: 03/22/18 1451 Report #: [id number] MV A Mak.: 1.15 m/s MV PHT: 91.02 ms IVRT: 161.48 ms Pulmonary Valve PV Peak Mak.: 0.99 m/s PV Peak Gr.: 3.95 mmHg Pulmonary Vein P Vein S: 0.60 m/s P Vein A: 0.28 m/s P Vein D: 0.37 m/s P Vein A Dur.: 120.0 msec P Vein S/D Ratio: 1.62 Tricuspid Valve TR Peak Mak.: 2.75 m/s TR Peak Gr.: 30.30 mmHg PA Pressure: 35.00 mmHg Left Ventricle The left ventricle is normal size. There is global hypokinesis of the left ventricle. There is normal left ventricular wall thickness. Left ventricular systolic function is moderately decreased. LVEF is 35-40%. Grade I - abnormal relaxation pattern. Right Ventricle Right ventricle is at the upper limits of normal. The right ventricular systolic function is normal. Atria Left atrium is dilated. Right atrium is dilated. Aortic Valve The aortic valve is normal in structure. Aortic valve is calcified. No aortic regurgitation is present. There is no aortic valvular stenosis. Mitral Valve The mitral valve is normal in structure. Trace to mild mitral regurgitation. No evidence of mitral valve stenosis. Tricuspid Valve The tricuspid valve is normal in structure. There is trace to mild tricuspid regurgitation.Estimated PAP 35 mmHg. There is mild pulmonary hypertension. Pulmonic Valve The pulmonary valve is normal in structure. Trace pulmonic [address] [address] 2 D/M-MODE ECHOCARDIOGRAM Name: KOURTNEY FAIRBANKS Room #: REG [facility] Jenny#: [id number] Admission: 03/22/18 Attend Phys: [facility] Dis[facility]: Date of : 30 Date of Service: 03/22/18 1451 Report #: [id number] regurgitation. Great Vessels The aortic root is normal in size. The ascending aorta is borderline dilated. IVC is normal in size and collapses >50% with inspiration. Pericardium There is no pericardial effusion. <Conclusion> The left ventricle is normal size. There is global hypokinesis of the left ventricle. LVEF is 35-40%. Left atrium is dilated. Right atrium is dilated. The aortic valve is normal in structure. Aortic valve is calcified. The mitral valve is normal in structure. Trace to mild mitral regurgitation. The tricuspid valve is normal in structure. There is trace to mild tricuspid regurgitation.Estimated PAP 35 mmHg. There is mild pulmonary hypertension. The ascending aorta is borderline dilated. There is no pericardial effusion. <ELECTRONICALLY SIGNED> By: Bobo Perez MD 03/22/18 145 [id number] Bobo Perez MD /INF
== END ==
LOC: CV 06:55
DX: I42.9 Cardiomyopathy, unspecified (principal); I27.20 Pulmonary hypertension, unspecified